=== PATIENT | male | born 1965 | race Caucasian/White ===

== ENCOUNTER 2016-04-01 14:13 | Emergency (ER) | payer BC, OTHER ==
[2016-04-01] MEDS ORDERED: DIPH,PERTUSS,TET(ADACEL) VAC/PF 0.5 ML (Tdap) IM ONE (14:23)
[2016-04-01 14:26] VITALS: RESP 16; TEMP 98.6
--- NOTE | 2016-04-01 14:34 | PDOC ---
Foot / Ankle Injury - General Chief Complaint: Lower Extremity Problem/Injury Stated Complaint: DROPPED METAL ON TOP OF LEFT FOOT Date Seen by Provider: 04/01/16 Time Seen by Provider: 14:20 Source: POSITIVE: Patient Exam Limitations: POSITIVE: No limitations Nurse's Notes Reviewed & Considered: Yes - History of Present Illness Initial Comments: The patient is a 50-year-old male who presents to the emergency department with an injury to his left foot. He states that he dropped a bout 100 pound piece of iron onto his left foot. The corners of the iron hit at the base of his great toe and then on the lateral aspect of his foot. He is able to walk however he cannot bear weight on his great toe. He denies any other associated injuries or complaints. He is not sure when he last would've had a tetanus shot however he thinks it is about 10-15 years ago. Have you received a tetanus shot in the past 10 years?: No - Patient Allergies Allergies/Adverse Reactions: Allergies Allergy/AdvReac Type Severity Reaction Status Date / Time No Known Allergies Allergy Unverified 10/18/12 08:55 - Patient Home Medications Home Medications: Home Medications HYDROcodone/APAP 5/325 Tab [Boyds 5/325 Tab] 1 each PO Q6H PRN #15 tablet Past Medical History - heen HEENT History: Denies History Cardiovascular History: Denies History Respiratory History: Denies History Gastrointestinal History: Denies History Genitourinary History: Denies History Endocrine History: Denies History Musculoskeletal History: Back Injury Prosthesis or Implant: No Neurological History: Denies History Blood Disorders: Denies History Psychiatric History: Denies History History of Sexually Transmitted Diseases: No Male Reproductive History: Denies History Cancer History: Denies History In Past Year Been Physically Harmed or Verbally Threatened: No History of MDRO: No History of Other Communicable Diseases: No Tobacco Use: Former Smoker Alcohol Use: Other How much alcohol do you normally drink a day?: daily Substance Use Type: None Past Medical History Reviewed: Reviewed - No Changes ROS - Limitations ROS Limitations: No Limitations (Review of systems otherwise noncontributory) Foot / Ankle Exam - General Appearance General Appearance: POSITIVE: Alert, Cooperative, No Acute Distress - Extremities Foot: POSITIVE: Other (examination of the left foot reveals some abrasion to the dorsum of the left great toe, there is a small subungual hematoma at the base of the nail, good sensation to the toe tip, good results pedis pulse in the left foot, he also has an abrasion/swelling and early bruising to the lateral aspect of the midfoot,) Ankle: POSITIVE: Normal Inspection Gait: POSITIVE: Limited by Pain (he is able to walk on his heel) Foot / Ankle Progress - Results Reviewed by me Xrays/CTs/US Reviewed by me: Yes Radiology Findings: X-ray left foot reveals a fracture of the distal phalanx of the great toe which appears to be somewhat comminuted, minimal displacement, no other fractures identified in the foot. - Patient's Progress MDM / ED Course: His tetanus was updated with Tdap. X-rays of the left foot were obtained. This shows a fracture of the distal phalanx of the great toe which is minimally displaced. He was placed in a postop shoe for comfort. He is advised to ice and elevate the left foot. He is advised to take ibuprofen 600 mg every 6 hours as needed for pain and was given a prescription for Boyds 5/325 which she can take as needed for pain. He was given a note not to work for the next 2 days. He is to return to the emergency room if he develops increased pain or numbness, worsening or change in symptoms. He is advised follow-up with orthopedic surgery, he will call on Sunday to schedule an appointment. - Consult Counseled: POSITIVE: Patient, Family, RE: Radiology Results, RE: DX, RE: Need for F/U Patient Care Time - Estimated PCT Patient Care Time (In Minutes): 15 Vital Signs - Recent Vital Signs Vital Signs: Vital Signs (Last 8 hours) Temp Pulse Resp BP Pulse Ox 04/01/16 14:19 98.6 F 75 16 139/98 96 - VS Reviewed Vital Signs Reviewed: Yes Discharge Clinical Impression: Fractured great toe, Crush injury of foot Condition: Stable Prescriptions / Orders: HYDROcodone/APAP 5/325 Tab [Boyds 5/325 Tab] 1 each PO Q6H PRN #15 tablet PRN Reason: Pain Patient Instructions Given at Discharge: Toe Fracture (ED), Crush Injury (ED) Additional Instructions: Postop shoe. Ice and elevate the left foot to help reduce swelling. Ibuprofen 600 mg every 6 hours as needed for swelling/pain. Boyds 5/325 one every 4-6 hours as needed for pain. Return to the emergency room if increased pain or numbness, any worsening or change in symptoms. Recommend orthopedic surgery follow-up. Call on Sunday to arrange an appointment this week. Follow Up With: AMEENA WILSON [Primary Care Provider] -
--- NOTE | 2016-04-01 17:10 | DI ---
LEFT FOOT, 04/01/2016 1:23 PM: Clinical History: Injury. The patient dropped a piece of iron on the left foot. Previous Exam: 09/30/2007. 3 views are submitted. There is no acute soft tissue, osseous, or joint abnormality. There is an os n aviculare present. Reading: Normal left foot exam.
== END 2016-04-01 15:30 | disposition home or self-care (01) ==
LOC: ER 14:13
DX: S92.422A Displaced fracture of distal phalanx of left great toe, initial encounter for closed fracture (principal); S90.812A Abrasion, left foot, initial encounter; W20.8XXA Other cause of strike by thrown, projected or falling object, initial encounter
CPT/HCPCS: 73630; 90471; 99282

== ENCOUNTER → 2016-06-02 | Outpatient (CLI) | payer BC ==
[2016-06-02 07:31] LABS: BLOOD UREA NITROGEN 20 mg/dL (7-22); BUN/CREATININE RATIO 22.22 (6-20); CALCIUM 9.3 mg/dL (8.7-10.7); CHOL/HDL RATIO 4.03 RATIO (0-4.0); EST GLOMERULAR FILTRATION > 60 (>60 ml/min/1.73m(2)); HDL CHOLESTEROL 51 mg/dL (40-150); SERUM ALBUMIN 4.2 g/dL (3.5-4.8); SERUM CHOLESTEROL 206 mg/dL (120-200)
== END ==
LOC: LAB 07:02
PROVIDERS: ATTEND Obstetrics & Gynecology Gynecology
DX: I10 Essential (primary) hypertension (principal); E78.00 Pure hypercholesterolemia, unspecified; Z12.5 Encounter for screening for malignant neoplasm of prostate
CPT/HCPCS: 36415; 80053; 80061; 84443; G0103